=== PATIENT | female | born 1960 | race Caucasian/White ===

== ENCOUNTER → 2018-08-08 | Day surgery (SDC) | payer BC ==
--- OUTSIDE RECORDS SUMMARY | 2018-08-08 08:26 | XMS REPORT | Continuity of Care Document ---
:1960 Author Organization Interface Problems Problem Status Onset Classification Date Comments Source Date Reported RUPTURED Active [facility] Anxiety Resolved Problem 01/07/2016 [facility] BP (<span Resolved Problem 01/07/2016 [facility] ID="[id number] Medical 111">[facility] d</span>) Lipidemia Resolved Problem 01/07/2016 [facility] Medications Medication Details Route Status Patient Ordering Order Source Instructions Provider Date Loperamide 2 mg, 1 cap, Inactive [facility] Route: PO, Drug 2015 Medical form: CAP, Q4H, Center Dosing Weight 113.636, kg, PRN as needed for loose stool, Start date: 01/04/16 10:00:00 CDT, Duration: 30 day, Stop date: 02/03/16 9:59:00 CDTNotes: (Same as: Imodium) MAX adult dose is 8 caps/day Flagyl 500 mg, 1 tab, Inactive 01/03[facility] Route: PO, Drug 2015 Medical form: TAB, Center Q12H, Dosing Weight 113.636, kg, Start date: 01/04/16 9:00:00 CDT, Duration: 30 day, Stop date: 02/02/16 21:00:00 CDTNotes: (Same as: Flagyl) Take with food/ avoid alcohol Sulfamethoxazole 1 tab, PO, Active 01/03[facility] [place] 800 MG / [id number], X 10 2015 Medical Trimethoprim 160 day, # 20 tab, Center MG Oral Tablet 0 Refill(s) [Bactrim] Metronidazole 500 500 mg=1 tab, Active 01/03[facility] [place] MG Oral Tablet PO, Q12H, X 10 2015 Medical day, # 20 tab, Center 0 Refill(s) Sulfamethoxazole 1 tab, Route: Inactive 01/03[facility] [place] 800 MG / PO, Drug Form: 2015 Medical Trimethoprim 160 TAB, Dosing Center MG Oral Tablet Weight 113.636, [Bactrim] kg, [id number], Start date: 01/04/16 6:00:00 CDT, Duration: 10 day, Stop date: 01/13/16 18:00:00 CDTNotes: One DS tablet=trimetho prim 160mg + sulfamethoxazol e 800 mg Dose based on trimethoprim component On empty stomach with a glass of water. 1 hr before meals (Same As: Bactrim DS, Septra DS) Simvastatin 10 mg, 1 tab, No Longer [place] Route: PO, Drug Active 2015 Medical form: TAB, Center Bedtime, Dosing Weight 100, kg, Start date: 01/03/16 21:00:00 CDT, Duration: 30 day, Stop date: 02/01/16 21:00:00 CDTNotes: (Same as: Zocor) Flagyl 500 mg, 100 mL, No Longer [place] Route: IVPB, Active 2015 Medical Drug form: INJ, Center [id number], Dosing Weight 100, kg, Start date: 01/03/16 14:00:00 CDT, Duration: 30 day, Stop date: 02/02/16 6:00:00 CDTNotes: (Same as: Flagyl) Avoid alcohol. Ceftriaxone 1 gm, Route: No Longer [place] IVPB, Drug Active 2015 Medical form: PDR/INJ, Center [id number], Dosing Weight 100, kg, Start date: 01/03/16 14:00:00 CDT, Duration: 30 day, Stop date: 02/01/16 14:00:00 CDTNotes: (Same As: Rocephin). Use with 100 mL NS and infuse over 30 min MEDICATION WASTE Product Size: 1000 mg Product Wasted: ___ mg D5W 1/2NS + KCL 1,000 mL, Rate: No Longer [place] 20mEq/L 1000ml 125 ml/hr, Active 2015 Medical (Premix) 1,000 mL Infuse over: 8 Center hr, Route: IV, Dosing Weight 100 kg, Total Volume: 1,000, Start date: 01/03/16 13:57:00 CDT, Duration: 30 day, Stop date: 02/02/16 13:56:00 CDT Tylenol 1,000 mg, 2 No Longer [place] tab, Route: PO, Active 2015 Medical Drug form: TAB, Center Q6H, Dosing Weight 100, kg, Start date: 01/03/16 12:00:00 CDT, Duration: 30 day, Stop date: 02/02/16 6:00:00 CDTNotes: Max acetaminophen 4000 mg/day (4 gm/day). (Same as: Tylenol Extra Strength) Famotidine 20 MG 20 mg=1 tab, Active [facility] Oral Tablet PO, PRN, 0 2015 Medical [Pepcid] Refill(s) Center Escitalopram 20 MG 20 mg=1 tab, Active [facility] Oral Tablet PO, Daily, 0 2015 Medical [Lexapro] Refill(s) Center amLODIPine 5 mg 5 mg=1 tab, PO, Active [facility] oral tablet Daily, 0 2015 Medical Refill(s) Center simvastatin 20 mg 20 mg=1 tab, Active [facility] oral tablet PO, Bedtime 2015 Medical Center Lexapro 10 mg, 1 tab, No Longer [facility] Route: PO, Drug Active 2015 Medical form: TAB, Center Daily, Dosing Weight 100, kg, Start date: 01/03/16 9:00:00 CDT, Duration: 30 day, Stop date: 02/01/16 9:00:00 CDTNotes: (Same as: Lexapro) Amlodipine 5 mg, 1 tab, No Longer [facility] Route: PO, Drug Active 2015 Medical form: TAB, Center Daily, Dosing Weight 100, kg, Start date: 01/03/16 9:00:00 CDT, Duration: 30 day, Stop date: 02/01/16 9:00:00 CDTNotes: (Same as: Norvasc) Famotidine 20 MG 20 mg, 1 tab, No Longer [facility] Oral Tablet Route: PO, Drug Active 2015 Medical [Pepcid] form: TAB, BID, Center Dosing Weight 100, kg, Start date: 01/03/16 9:00:00 CDT, Duration: 30 day, Stop date: 02/01/16 17:00:00 CDTNotes: (Same as: Pepcid) Zofran 4 mg, 2 mL, No Longer [place] Route: IV, Drug Active 2015 Medical form: INJ, Q8H, Center Dosing Weight 100, kg, PRN as needed for nausea/vomiting , Start date: 01/03/16 6:30:00 CDT, Duration: 30 day, Stop date: 02/02/16 6:29:00 CDTNotes: (Same as: Zoan) MEDICATION WASTE Product Size: 4 mg Product Wasted: ___ mg Ibuprofen 400 mg, 1 tab, No Longer [place] Route: PO, Drug Active 2015 Medical form: TAB, Q8H, Center Dosing Weight 100, kg, PRN Pain Score 1-5, Start date: 01/03/16 6:30:00 CDT, Duration: 30 day, Stop date: 02/02/16 6:29:00 CDTNotes: (Same as: Motrin) "Do Not Crush" Give with food. Isolyte S (PH 7.4) 1,000 mL, Rate: Inactive [place] 1000 mL 1,000 mL 140 ml/hr, 2015 Medical Infuse over: Center 7.1 hr, Route: IV, Dosing Weight 100 kg, Total Volume: 1,000, Start date: 01/03/16 6:25:00 CDT, Duration: 30 day, Stop date: 02/02/16 6:24:00 CDTNotes: (Same as: Isolyte S PH 7.4) Lovenox 30 mg, 0.3 mL, No Longer [facility] Route: SUB-Q, Active 2015 Medical Drug form: INJ, Center Q12H, Dosing Weight 100, kg, Priority: STAT, Start date: 01/03/16 6:12:00 CDT, Duration: 30 day, Stop date: 02/01/16 21:00:00 CDTNotes: (Same as: Lovenox) Pepcid 40 mg, Route: Inactive [place] IV, ONCE, 2015 Medical Dosing Weight Center 100, kg, Start date: 01/03/16 4:08:00 CDT, Stop date: 01/03/16 4:08:00 CDT Flagyl 500 mg, 100 mL, Inactive [facility] Route: IVPB, 2015 Medical Drug form: INJ, Center ONCE, Dosing Weight 100, kg, Priority: STAT, Start date: 01/03/16 2:50:00 CDT, Stop date: 01/03/16 2:50:00 CDTNotes: (Same as: yl) Avoid alcohol. Allergies, Adverse Reactions, Alerts Substance Category Reaction Severity Reaction Status Date Comments Source type Reported Augmentin Assertion Drug Active [facility] codeine Assertion Augmentin Drug Active [facility] Immunizations Immunization Date Given Site Status Last Updated Comments Source Results Order Name Results Value Reference Date Interpretation Comments Source Range ENDOCRINOLO LH 0.88 01/02 [facility] GY mIU/mL [facility] ENDOCRINOLO FSH 3.3 mIU/mL 01/02 [facility] GY [facility] HEMATOLOGY Segs 59.1 % 45.0 - 01/02 [facility] 75.0 [facility] HEMATOLOGY Basophils 0.6 % 0.0 - 1.0 01/[address] HEMATOLOGY Monocytes 7.9 % 2.0 - 12.0 01/[address] HEMATOLOGY Lymphocytes 30.4 % 20.0 - 01/02 [facility] 40.0 [facility] HEMATOLOGY Basophils # 0.1 K/CMM 0.0 - 0.2 01/[address] HEMATOLOGY Eosinophils # 0.2 K/CMM 0.0 - 0.5 01/[address] HEMATOLOGY Monocytes # 0.9 K/CMM 0.0 - 0.8 01/[address] HEMATOLOGY Eosinophils 2.0 % 0.0 - 4.0 01/[address] HEMATOLOGY Segs-Bands # 6.9 K/CMM 1.5 - 8.1 01/[address] HEMATOLOGY Lymphocytes # 3.6 K/CMM 1.0 - 5.5 01/[address] HEMATOLOGY MCV 98.6 fL 80.0 - 01/02 [facility] 98.0 [facility] HEMATOLOGY MPV 8.9 fL 7.4 - 10.4 01/[address] HEMATOLOGY Platelet 128 K/CMM 133 - 450 01/[address] HEMATOLOGY MCH 32.9 pg 27.0 - 01/02 [facility] 31.0 [facility] HEMATOLOGY RDW 12.9 % 11.5 - 01/02 [facility] 14.5 /2015 [facility] HEMATOLOGY MCHC 33.4 g/dL 32.0 - 01/02 [facility] 36.0 /2016 [facility] HEMATOLOGY RBC 3.52 M/CMM 4.20 - 01/02 [facility] 5.40 /2015 [facility] HEMATOLOGY WBC 11.7 K/CMM 3.7 - 10.4 01/02 /2015 [facility] HEMATOLOGY Hgb 11.6 g/dL 12.0 - 01/02 [facility] 16.0 /2016 [facility] HEMATOLOGY Hct 34.7 % 36.0 - 01/02 [facility] 48.0 /2016 [facility] MOLECULAR Source APTIMA Endocervix 01/02 [facility] DIAGNOSTIC /2015 Medical *NA* Center (01/03/16 10:56 AM) MOLECULAR N gonorrhea Negative Negative 01/02 [facility] DIAGNOSTIC by Amp Det [facility] (APTIMA) *NA* [place] (01/03/16 10:56 AM) MOLECULAR C trachomatis Negative Negative 01/02 [facility] DIAGNOSTIC by Amp Det [facility] (APTIMA) *NA* Center (01/03/16 10:56 AM) URINE AND UA RBC 0-2 /HPF 0 - 2 01/02 [facility] STOOL /2015 [facility] URINE AND UA Bacteria Few /HPF None Seen 01/02 [facility] STOOL /HPF /2015 [facility] URINE AND UA Sq Epi Moderate Few /LPF 01/02 [facility] STOOL /LPF /2015 [facility] URINE AND UA WBC 3-5 /HPF None Seen 01/02 [facility] STOOL /HPF /2015 [facility] URINE AND Micro? Performed 01/02 [facility] STOOL [facility] (01/03/16 6:09 AM) [place] URINE AND UA Ketones 40 mg/dL Negative 01/02 [facility] STOOL mg/dL /2015 [facility] URINE AND UA Protein Negative Negative 01/02 [facility] STOOL [facility] (01/03/16 6:09 AM) [place] URINE AND UA Glucose Negative Negative 01/02 [facility] (01/03/16 6:09 AM) [place] URINE AND UA Bili Moderate Negative 01/02 [facility] *ABN* Center (01/03/16 6:09 AM) URINE AND UA Blood Small Negative 01/02 [facility] *ABN* Center (01/03/16 6:09 AM) URINE AND UA Nitrite Negative Negative 01/02 [facility] STOOL /2015 [facility] (01/03/16 6:09 AM) [place] URINE AND UA Leuk Est Negative Negative 01/02 [facility] /2015 [facility] (01/03/16 6:09 AM) [place] URINE AND UA 2.0 EU/dL 0.1 - 1.0 01/02 [facility] Urobilinogen /2015 [facility] URINE AND UA Color Yellow Yellow 01/02 [facility] /2015 [facility] *NA* [place] (01/03/16 6:09 AM) URINE AND UA Turbidity Slight Cloudy Clear 01/02 [facility] STOOL /2015 [facility] (01/03/16 6:09 AM) [place] URINE AND UA Spec Grav 1.025 <=1.030 01/02 [facility] /2015 [facility] URINE AND UA pH 6.5 5.0 - 8.0 01/02 [facility] /2015 [facility] BLOOD BANK Antibody Scrn Negative 01/02 [facility] RESULTS [facility] (01/03/16 2:47 AM) [place] BLOOD BANK ABO/Rh O POS 01/02 [facility] /2015 [facility] CHEM PANEL Lactic Acid 1.1 mmol/L 0.5 - 2.2 01/02 [facility] WB /2015 [facility] CHEM PANEL Lipase Lvl 75 unit/L 73 - 393 01/[address] ELECTROLYTE Chloride Lvl 101 meq/L 95 - 109 01/02 [facility] S /2015 [facility] ELECTROLYTE CO2 26 meq/L 24 - 32 01/[address] ELECTROLYTE Sodium Lvl 136 meq/L 135 - 145 01/[address] ELECTROLYTE Potassium Lvl 3.5 meq/L 3.5 - 5.1 01/02 [facility] S 2016 [facility] ELECTROLYTE Calcium Lvl 8.2 mg/dL 8.5 - 10.5 01/02 [facility] S /2016 [facility] ELECTROLYTE BUN 10 mg/dL 7 - 22 01/02 [facility]2016 [facility] ELECTROLYTE Glucose Lvl 92 mg/dL 70 - 99 01/02 [facility]2015 [facility] ELECTROLYTE Creatinine 0.63 mg/dL 0.50 - 01/02 [facility] Lvl 1.40 /2015 [facility] ELECTROLYTE eGFR 101 01/02 Result Comment: The eGFR is calculated using the CKD-EPI formula. In most young, healthy individuals the eGFR will be > 90 mL/min/1.73m2. The eGFR declines with age. An eGFR of 60-89 may be normal in [facility] mL/min/1.7 /2015 some populations, particularly the elderly, for whom the CKD-EPI formula has not been extensively validated. Use of the eGFR is not recommended in the following populations: [address] Individuals with unstable creatinine concentrations, including patients and those with serious co-morbid conditions. Patients with extremes in muscle mass or diet. The data above are obtained from the National Kidney Disease Education Program (NKDEP) which additionally recommends that when the eGFR is used in patients with extremes of body mass index for purposes of drug dosing, the eGFR should be multiplied by the estimated BMI. ELECTROLYTE Alk Phos 87 unit/L 39 - 136 01/[address] ELECTROLYTE AST 27 unit/L 0 - 37 01/[address] ELECTROLYTE Bili Total 0.8 mg/dL 0.2 - 1.3 01/[address] ELECTROLYTE ALT 36 unit/L 0 - 65 01/[address] ELECTROLYTE Total Protein 7.4 g/dL 6.4 - 8.4 01/[address] ELECTROLYTE Albumin Lvl 3.2 g/dL 3.5 - 5.0 01/[address] ELECTROLYTE AGAP 12.5 meq/L 10.0 - 01/02 [facility] 20.0 [facility] ELECTROLYTE B/C Ratio 16 6 - 25 01/[address] ELECTROLYTE A/G Ratio 0.8 0.7 - 1.6 01/[address] ELECTROLYTE Globulin 4.2 g/dL 2.0 - 4.0 01/[address] HEMATOLOGY Segs 60.8 % 45.0 - 01/02 [facility] 75.0 2015 [facility] HEMATOLOGY Eosinophils # 0.2 K/CMM 0.0 - 0.5 01/[address] HEMATOLOGY Monocytes # 1.1 K/CMM 0.0 - 0.8 01/[address] HEMATOLOGY Lymphocytes # 4.0 K/CMM 1.0 - 5.5 01/[address] HEMATOLOGY Segs-Bands # 8.2 K/CMM 1.5 - 8.1 01/02 [place] [address] [facility] HEMATOLOGY Basophils 0.4 % 0.0 - 1.0 01/02 [facility] HEMATOLOGY Eosinophils 1.5 % 0.0 - 4.0 01/02 [facility] HEMATOLOGY Monocytes 7.8 % 2.0 - 12.0 01/02 [facility] HEMATOLOGY Lymphocytes 29.5 % 20.0 - 01/02 [place] 40.0 /2015 [facility] HEMATOLOGY INR 1.10 0.85 - 01/02 [place] 1.17 /2015 [facility] HEMATOLOGY PTT 33.3 s 22.9 - 01/02 [place] 35.8 /2015 [facility] HEMATOLOGY PT 14.5 s 12.0 - 01/02 14.7 /2015 [facility] HEMATOLOGY MPV 9.5 fL 7.4 - 10.4 01/02 [facility] HEMATOLOGY MCV 98.3 fL 80.0 - 01/02 [facility] 98.0 /2015 [facility] HEMATOLOGY Hct 39.8 % 36.0 - 01/02 48.0 [facility] HEMATOLOGY Hgb 13.2 g/dL 12.0 - 01/02 16.0 [facility] HEMATOLOGY RBC 4.05 M/CMM 4.20 - 01/02 [place] 5.40 /2015 [facility] HEMATOLOGY WBC 13.5 K/CMM 3.7 - 10.4 01/02 [facility] HEMATOLOGY MCH 32.6 pg 27.0 - 01/02 31.0 /2016 [facility] HEMATOLOGY Platelet 145 K/CMM 133 - 450 01/02 [facility] HEMATOLOGY RDW 13.4 % 11.5 - 01/02 14.5 [facility] HEMATOLOGY MCHC 33.2 g/dL 32.0 - 01/02 [place] 36.0 2016 [facility] Torso-Outsi Torso-Outside EXAM: CT ABDOMEN AND PELVIS WITHOUT AND WITH CONTRAST 01/02 - [facility] de Consult Consult CT /2015 - Medical CT This report was dictated by a Paint Technician/Fellow. I have personally reviewed the images as Center well as the Resident's interpretation and agree with the findings. DATE: 01/03/2016 2:45 AM CDT Read by: Lizzette Anthony MD Resident: Lizzette Anthony MD Dictated Date/time: 01/03/16 08:53 Electronically Signed by: Madan Strauss MD 01/03/16 10:24 FINAL REPORT INDICATION: Abdominal pain and cramping for one week ADDITIONAL INFORMATION: None. COMPARISON: Pelvic ultrasound from same day from outside hospital. TECHNIQUE: Volumetric CT acquisition of the abdomen and pelvis before and after the intravenous administration of contrast. Axial, coronal and sagittal reconstructions. Postcontrast phases: Portal venous IV contrast: Present Oral contrast: None. DLP: 1180 mGy-cm FINDINGS: Lines and tubes: None. Lower thorax: Clear. Liver: Diffuse low-attenuation. Biliary tree: No intra- or extrahepatic biliary ductal dilation. Gallbladder: Normal. No CT evidence of gallstones. Pancreas: Normal. Spleen: Normal. Adrenals: Normal. Kidneys and ureters: Normal. Bladder: Normal. Reproductive organs: Heterogeneity and thickening of the endometrium, better appreciated on the ultrasound. Gastrointestinal tract: Normal caliber. Appendix: Not reliably identified. Peritoneum and retroperitoneum: There is stranding and inflammatory changes in the right lower quadrant and pelvis. No lymphadenopathy, ascites or free air. Lymph nodes: Normal. Vasculature: Normal. Ovarian vein is patent. Bones: Degenerative changes of the lower lumbar spine. Soft tissues: Normal. IMPRESSION: 1. Endometrial distention and heterogeneity, with stranding and inflammatory changes in the pelvis and right lower quadrant. Findings are most concerning for pelvic inflammatory disease. Recommend foll ow-up with ultrasound after treatment is completed to ensure resolution of the endometrial abnormality. 2. No ovarian vein thrombosis or abscess formation. 3. Appendix is not reliably identified. Torso-Outsi Torso-Outside EXAM: CT ABDOMEN AND PELVIS WITHOUT AND WITH CONTRAST 01/02 - [place] [facility] Consult Consult CT /2015 - Medical CT This report was dictated by a Paint Technician/Fellow. I have personally reviewed the images as Center well as the Resident's interpretation and agree with the findings. DATE: 01/03/2016 2:45 AM CDT Read by: Lizzette Anthony MD Resident: Lizzette Anthony MD Dictated Date/time: 01/03/16 08:53 Electronically Signed by: Madan Strauss MD 01/03/16 10:24 FINAL REPORT INDICATION: Abdominal pain and cramping for one week ADDITIONAL INFORMATION: None. COMPARISON: Pelvic ultrasound from same day from outside hospital. TECHNIQUE: Volumetric CT acquisition of the abdomen and pelvis before and after the intravenous administration of contrast. Axial, coronal and sagittal reconstructions. Postcontrast phases: Portal venous IV contrast: Present Oral contrast: None. DLP: 1180 mGy-cm FINDINGS: Lines and tubes: None. Lower thorax: Clear. Liver: Diffuse low-attenuation. Biliary tree: No intra- or extrahepatic biliary ductal dilation. Gallbladder: Normal. No CT evidence of gallstones. Pancreas: Normal. Spleen: Normal. Adrenals: Normal. Kidneys and ureters: Normal. Bladder: Normal. Reproductive organs: Heterogeneity and thickening of the endometrium, better appreciated on the ultrasound. Gastrointestinal tract: Normal caliber. Appendix: Not reliably identified. Peritoneum and retroperitoneum: There is stranding and inflammatory changes in the right lower quadrant and pelvis. No lymphadenopathy, ascites or free air. Lymph nodes: Normal. Vasculature: Normal. Ovarian vein is patent. Bones: Degenerative changes of the lower lumbar spine. Soft tissues: Normal. IMPRESSION: 1. Endometrial distention and heterogeneity, with stranding and inflammatory changes in the pelvis and right lower quadrant. Findings are most concerning for pelvic inflammatory disease. Recommend foll ow-up with ultrasound after treatment is completed to ensure resolution of the endometrial abnormality. 2. No ovarian vein thrombosis or abscess formation. 3. Appendix is not reliably identified. Vital Signs Vital Sign Value Date Comments Source Heart Rate 71 01/04/2016 [facility] Temperature Oral (F) 97.3 F 01/04/2016 [facility] Systolic (mm Hg) 107 01/04/2016 [facility] Diastolic (mm Hg) 66 01/04/2016 [facility] Respitory Rate 18 01/04/2016 [facility] Temperature Oral (F) 98.1 F 01/04/2016 [facility] Systolic (mm Hg) 115 01/04/2016 [facility] Diastolic (mm Hg) 71 01/04/2016 [facility] Respitory Rate 16 01/04/2016 [facility] Heart Rate 69 01/04/2016 [facility] Heart Rate 70 01/04/2016 [facility] Temperature Oral (F) 97.0 F 01/04/2016 [facility] Respitory Rate 17 01/04/2016 [facility] Systolic (mm Hg) 112 01/04/2016 [facility] Diastolic (mm Hg) 63 01/04/2016 [facility] BMI Calculated 43 01/03/2016 [facility] Weight 113.636 01/03/2016 [facility] Height 162.56 cm 01/03/2016 [facility] Weight 100 01/03/2016 [facility] BMI Calculated 34.53 01/03/2016 [facility] Height 170.18 cm 01/03/2016 [facility] Encounters Location Location Encounter Encounter Reason Attending ADM DC Status Source Details Type Number For Provider Date Date Visit [facility] [id number] [facility] 01/02 01/03 [facility] [place] /2015 [facility] Procedures Procedure Code Date Perfomer Comments Source Ablation<sup>1</ [id number] UTERUS ABLATION [facility] sup> TO CONTROL Medical BLEEDING 3 Center YEARS AGE IN [place]
--- NOTE | 2018-08-08 10:50 | RAD REPORT ---
EXAM DESCRIPTION: Ultrasound-guided vacuum assisted right breast core biopsy CLINICAL HISTORY: Breast mass R92.8,N64.52 COMPARISON: No comparisons FINDINGS: Informed consent was obtained and time-out was performed. The patient's right breast was prepped and draped in the usual sterile fashion. 1% lidocaine was used for local anesthetic purposes. Utilizing aseptic technique and ultrasound guidance, vacuum assisted core biopsy device was used to o btain 2 core specimens through the mass of interest approximate 6 o'clock position right breast. A po st biopsy clip was then placed. All collected material was sent for cytology. Patient tolerated procedure well. IMPRESSION: Successful ultrasound guided vacuum assisted right breast mass biopsy.
== END ==
LOC: DS 08:23
PROVIDERS: ATTEND Obstetrics & Gynecology
PROC: 0HBT3ZX Excision of Right Breast, Percutaneous Approach, Diagnostic (ICD-10-PCS; principal; 2018-08-08)
DX: D05.11 Intraductal carcinoma in situ of right breast (principal)
CPT/HCPCS: 19083; 88305

== ENCOUNTER 2018-10-06 07:10 | Day surgery (SDC) | payer BC ==
[2018-10-03 09:35] LABS: Absolute Lymphocytes (CBC) 3.8 K/uL (0.7-4.9); Absolute Monocytes 0.6 K/uL (0.1-1.3); Absolute Neutrophil 5.6 K/uL (1.8-8.0); Basophils % 0.7 % (0-1.3); Eosinophils % 1.9 % (0-4.4); Hematocrit 45.1 % (36.0-45.0); Lymphocytes % 36.7 % (15.3-44.8); MPV 9.9 fL (7.6-11.3); Monocytes % 6.3 % (3.3-12.3); RBC Red Blood Cell Count 4.45 M/uL (3.86-4.86)
[2018-10-03 09:52] LABS: BUN Blood Urea Nitrogen 10 mg/dL (7-18); Bicarbonate 28 mmol/L (21-32); Glucose Level 105 mg/dL (74-106); Potassium 3.6 mmol/L (3.5-5.1); Sodium Level 141 mmol/L (136-145)
--- NOTE | 2018-10-03 10:09 | RAD REPORT ---
EXAM DESCRIPTION: Isidro Louie (2 Views)10/03/2018 9:26 am CLINICAL HISTORY: Breast cancer/preop COMPARISON: None FINDINGS: The lungs appear clear of acute infiltrate. The heart is borderline enlarged IMPRESSION: No acute abnormalities displayed
--- NOTE | 2018-10-04 09:26 | EKG ---
Test Date: 2018-10-03 Test Time: 08:16:59 Community Chest Officer: VINNY MEASUREMENT RESULTS: Intervals: Rate: 85 VT: 178 QRSD: 92 QT: 408 QTc: 485 [place]: P: 67 VT: 178 QRS: 25 T: 61 INTERPRETIVE STATEMENTS: Normal sinus rhythm Prolonged QT Abnormal ECG No previous ECG available for comparison Electronically Signed On 10-04-18 09:22:14 CDT by Ihsan Del Angel
--- OUTSIDE RECORDS SUMMARY | 2018-10-06 07:13 | XMS REPORT | Continuity of Care Document ---
:1960 Author Organization Interface Problems Problem Status Onset Classification Date Comments Source Date Reported RUPTURED Active [facility] APPENDIX 6 Medical Center Anxiety Resolved Problem 01/07/2016 [facility] BP (<span Resolved Problem 01/07/2016 [facility] ID="[id number] Medical 111">[facility] d</span>) Lipidemia Resolved Problem 01/07/2016 [facility] Medications Medication Details Route Status Patient Ordering Order Source Instructions Provider Date Loperamide 2 mg, 1 cap, Inactive [facility] Route: PO, Drug 2015 Medical form: CAP, Q4H, Center Dosing Weight 113.636, kg, PRN as needed for loose stool, Start date: 01/04/16 10:00:00 CDT, Duration: 30 day, Stop date: 02/03/16 9:59:00 CDTNotes: (Same as: Imodium) MAX adult dose is 8 caps/day Flagyl 500 mg, 1 tab, Inactive 01/03[facility] Route: PO, Drug 2015 Medical form: TAB, Center Q12H, Dosing Weight 113.636, kg, Start date: 01/04/16 9:00:00 CDT, Duration: 30 day, Stop date: 02/02/16 21:00:00 CDTNotes: (Same as: Flagyl) Take with food/ avoid alcohol Sulfamethoxazole 1 tab, PO, Active 01/03[facility] [place] 800 MG / [id number], X 10 2015 Medical Trimethoprim 160 day, # 20 tab, Center MG Oral Tablet 0 Refill(s) [Bactrim] Metronidazole 500 500 mg=1 tab, Active 01/03[facility] [place] MG Oral Tablet PO, Q12H, X 10 2015 Medical day, # 20 tab, Center 0 Refill(s) Sulfamethoxazole 1 tab, Route: Inactive 01/03[facility] [place] 800 MG / PO, Drug Form: 2015 Medical Trimethoprim 160 TAB, Dosing Center MG Oral Tablet Weight 113.636, [Bactrim] kg, [id number], Start date: 01/04/16 6:00:00 CDT, Duration: 10 day, Stop date: 01/13/16 18:00:00 CDTNotes: One DS tablet=trimetho prim 160mg + sulfamethoxazol e 800 mg Dose based on trimethoprim component On empty stomach with a glass of water. 1 hr before meals (Same As: Bactrim DS, Septra DS) Simvastatin 10 mg, 1 tab, No Longer [place] Route: PO, Drug Active 2015 Medical form: TAB, Center Bedtime, Dosing Weight 100, kg, Start date: 01/03/16 21:00:00 CDT, Duration: 30 day, Stop date: 02/01/16 21:00:00 CDTNotes: (Same as: Zocor) Flagyl 500 mg, 100 mL, No Longer [place] Route: IVPB, Active 2015 Medical Drug form: INJ, Center [id number], Dosing Weight 100, kg, Start date: 01/03/16 14:00:00 CDT, Duration: 30 day, Stop date: 02/02/16 6:00:00 CDTNotes: (Same as: Flagyl) Avoid alcohol. Ceftriaxone 1 gm, Route: No Longer [place] IVPB, Drug Active 2015 Medical form: PDR/INJ, Center [id number], Dosing Weight 100, kg, Start date: 01/03/16 14:00:00 CDT, Duration: 30 day, Stop date: 02/01/16 14:00:00 CDTNotes: (Same As: Rocephin). Use with 100 mL NS and infuse over 30 min MEDICATION WASTE Product Size: 1000 mg Product Wasted: ___ mg D5W 1/2NS + KCL 1,000 mL, Rate: No Longer [place] 20mEq/L 1000ml 125 ml/hr, Active 2015 Medical (Premix) 1,000 mL Infuse over: 8 Center hr, Route: IV, Dosing Weight 100 kg, Total Volume: 1,000, Start date: 01/03/16 13:57:00 CDT, Duration: 30 day, Stop date: 02/02/16 13:56:00 CDT Tylenol 1,000 mg, 2 No Longer [place] tab, Route: PO, Active 2015 Medical Drug form: TAB, Center Q6H, Dosing Weight 100, kg, Start date: 01/03/16 12:00:00 CDT, Duration: 30 day, Stop date: 02/02/16 6:00:00 CDTNotes: Max acetaminophen 4000 mg/day (4 gm/day). (Same as: Tylenol Extra Strength) Famotidine 20 MG 20 mg=1 tab, Active [facility] Oral Tablet PO, PRN, 0 2015 Medical [Pepcid] Refill(s) Center Escitalopram 20 MG 20 mg=1 tab, Active [facility] Oral Tablet PO, Daily, 0 2015 Medical [Lexapro] Refill(s) Center amLODIPine 5 mg 5 mg=1 tab, PO, Active [facility] oral tablet Daily, 0 2015 Medical Refill(s) Center simvastatin 20 mg 20 mg=1 tab, Active [facility] oral tablet PO, Bedtime 2015 Medical Center Lexapro 10 mg, 1 tab, No Longer [facility] Route: PO, Drug Active 2015 Medical form: TAB, Center Daily, Dosing Weight 100, kg, Start date: 01/03/16 9:00:00 CDT, Duration: 30 day, Stop date: 02/01/16 9:00:00 CDTNotes: (Same as: Lexapro) Amlodipine 5 mg, 1 tab, No Longer [facility] Route: PO, Drug Active 2015 Medical form: TAB, Center Daily, Dosing Weight 100, kg, Start date: 01/03/16 9:00:00 CDT, Duration: 30 day, Stop date: 02/01/16 9:00:00 CDTNotes: (Same as: Norvasc) Famotidine 20 MG 20 mg, 1 tab, No Longer [facility] Oral Tablet Route: PO, Drug Active 2015 Medical [Pepcid] form: TAB, BID, Center Dosing Weight 100, kg, Start date: 01/03/16 9:00:00 CDT, Duration: 30 day, Stop date: 02/01/16 17:00:00 CDTNotes: (Same as: Pepcid) Zofran 4 mg, 2 mL, No Longer [place] Route: IV, Drug Active 2015 Medical form: INJ, Q8H, Center Dosing Weight 100, kg, PRN as needed for nausea/vomiting , Start date: 01/03/16 6:30:00 CDT, Duration: 30 day, Stop date: 02/02/16 6:29:00 CDTNotes: (Same as: Zoan) MEDICATION WASTE Product Size: 4 mg Product Wasted: ___ mg Ibuprofen 400 mg, 1 tab, No Longer [place] Route: PO, Drug Active 2015 Medical form: TAB, Q8H, Center Dosing Weight 100, kg, PRN Pain Score 1-5, Start date: 01/03/16 6:30:00 CDT, Duration: 30 day, Stop date: 02/02/16 6:29:00 CDTNotes: (Same as: Motrin) "Do Not Crush" Give with food. Isolyte S (PH 7.4) 1,000 mL, Rate: Inactive [place] 1000 mL 1,000 mL 140 ml/hr, 2015 Medical Infuse over: Center 7.1 hr, Route: IV, Dosing Weight 100 kg, Total Volume: 1,000, Start date: 01/03/16 6:25:00 CDT, Duration: 30 day, Stop date: 02/02/16 6:24:00 CDTNotes: (Same as: Isolyte S PH 7.4) Lovenox 30 mg, 0.3 mL, No Longer [facility] Route: SUB-Q, Active 2015 Medical Drug form: INJ, Center Q12H, Dosing Weight 100, kg, Priority: STAT, Start date: 01/03/16 6:12:00 CDT, Duration: 30 day, Stop date: 02/01/16 21:00:00 CDTNotes: (Same as: Lovenox) Pepcid 40 mg, Route: Inactive [place] IV, ONCE, 2015 Medical Dosing Weight Center 100, kg, Start date: 01/03/16 4:08:00 CDT, Stop date: 01/03/16 4:08:00 CDT Flagyl 500 mg, 100 mL, Inactive [facility] Route: IVPB, 2015 Medical Drug form: INJ, Center ONCE, Dosing Weight 100, kg, Priority: STAT, Start date: 01/03/16 2:50:00 CDT, Stop date: 01/03/16 2:50:00 CDTNotes: (Same as: yl) Avoid alcohol. Allergies, Adverse Reactions, Alerts Substance Category Reaction Severity Reaction Status Date Comments Source type Reported [place] Assertion [place] [facility] [place] Assertion [place] Drug [place] [facility] [place] Immunizations Immunization Date Given Site Status Last Updated Comments Source Results Order Name Results Value Reference Date Interpretation Comments Source Range ENDOCRINOLO LH 0.88 01/02 [facility] GY mIU/mL [facility] ENDOCRINOLO FSH 3.3 mIU/mL 01/02 [facility] GY [facility] HEMATOLOGY Segs 59.1 % 45.0 - 01/02 [facility] 75.0 [facility] HEMATOLOGY Basophils 0.6 % 0.0 - 1.0 01/[address] HEMATOLOGY Monocytes 7.9 % 2.0 - 12.0 01/[address] HEMATOLOGY Lymphocytes 30.4 % 20.0 - 01/02 [facility] 40.0 [facility] HEMATOLOGY Basophils # 0.1 K/CMM 0.0 - 0.2 01/[address] HEMATOLOGY Eosinophils # 0.2 K/CMM 0.0 - 0.5 01/[address] HEMATOLOGY Monocytes # 0.9 K/CMM 0.0 - 0.8 01/[address] HEMATOLOGY Eosinophils 2.0 % 0.0 - 4.0 01/[address] HEMATOLOGY Segs-Bands # 6.9 K/CMM 1.5 - 8.1 01/[address] HEMATOLOGY Lymphocytes # 3.6 K/CMM 1.0 - 5.5 01/[address] HEMATOLOGY MCV 98.6 fL 80.0 - 01/02 [facility] 98.0 [facility] HEMATOLOGY MPV 8.9 fL 7.4 - 10.4 01/[address] HEMATOLOGY Platelet 128 K/CMM 133 - 450 01/[address] HEMATOLOGY MCH 32.9 pg 27.0 - 01/02 [facility] 31.0 [facility] HEMATOLOGY RDW 12.9 % 11.5 - 01/02 [facility] 14.5 /2015 [facility] HEMATOLOGY MCHC 33.4 g/dL 32.0 - 01/02 [facility] 36.0 /2016 [facility] HEMATOLOGY RBC 3.52 M/CMM 4.20 - 01/02 [facility] 5.40 /2015 [facility] HEMATOLOGY WBC 11.7 K/CMM 3.7 - 10.4 01/02 /2015 [facility] HEMATOLOGY Hgb 11.6 g/dL 12.0 - 01/02 [facility] 16.0 /2016 [facility] HEMATOLOGY Hct 34.7 % 36.0 - 01/02 [facility] 48.0 /2016 [facility] MOLECULAR Source APTIMA Endocervix 01/02 [facility] DIAGNOSTIC /2015 Medical *NA* Center (01/03/16 10:56 AM) MOLECULAR N gonorrhea Negative Negative 01/02 [facility] DIAGNOSTIC by Amp Det [facility] (APTIMA) *NA* [facility] (01/03/16 10:56 AM) MOLECULAR C trachomatis Negative Negative 01/02 [facility] DIAGNOSTIC by Amp Det [facility] (APTIMA) *NA* Center (01/03/16 10:56 AM) URINE AND UA RBC 0-2 /HPF 0 - 2 01/02 [facility] STOOL /2015 [facility] URINE AND UA Bacteria Few /HPF None Seen 01/02 [facility] STOOL /HPF /2015 [facility] URINE AND UA Sq Epi Moderate Few /LPF 01/02 [facility] STOOL /LPF /2015 [facility] URINE AND UA WBC 3-5 /HPF None Seen 01/02 [facility] STOOL /HPF /2015 [facility] URINE AND Micro? Performed 01/02 [facility] STOOL [facility] (01/03/16 6:09 AM) [facility] URINE AND UA Ketones 40 mg/dL Negative 01/02 [facility] STOOL mg/dL /2015 [facility] URINE AND UA Protein Negative Negative 01/02 [facility] STOOL [facility] (01/03/16 6:09 AM) [facility] URINE AND UA Glucose Negative Negative 01/02 [facility] (01/03/16 6:09 AM) [facility] URINE AND UA Bili Moderate Negative 01/02 [facility] *ABN* Center (01/03/16 6:09 AM) URINE AND UA Blood Small Negative 01/02 [facility] *ABN* Center (01/03/16 6:09 AM) URINE AND UA Nitrite Negative Negative 01/02 [facility] STOOL /2015 [facility] (01/03/16 6:09 AM) [facility] URINE AND UA Leuk Est Negative Negative 01/02 [facility] /2015 [facility] (01/03/16 6:09 AM) [facility] URINE AND UA 2.0 EU/dL 0.1 - 1.0 01/02 [facility] Urobilinogen /2015 [facility] URINE AND UA Color Yellow Yellow 01/02 [facility] /2015 [facility] *NA* [facility] (01/03/16 6:09 AM) URINE AND UA Turbidity Slight Cloudy Clear 01/02 [facility] STOOL /2015 [facility] (01/03/16 6:09 AM) [facility] URINE AND UA Spec Grav 1.025 <=1.030 01/02 [facility] /2015 [facility] URINE AND UA pH 6.5 5.0 - 8.0 01/02 [facility] /2015 [facility] BLOOD BANK Antibody Scrn Negative 01/02 [facility] RESULTS [facility] (01/03/16 2:47 AM) [facility] BLOOD BANK ABO/Rh O POS 01/02 [facility] /2015 [facility] CHEM PANEL Lactic Acid 1.1 mmol/L 0.5 - 2.2 01/02 [facility] WB /2015 [facility] CHEM PANEL Lipase Lvl 75 unit/L 73 - 393 01/[address] ELECTROLYTE Chloride Lvl 101 meq/L 95 - 109 01/02 [facility] S /2015 [facility] ELECTROLYTE CO2 26 meq/L 24 - 32 01/[address] ELECTROLYTE Sodium Lvl 136 meq/L 135 - 145 01/[address] ELECTROLYTE Potassium Lvl 3.5 meq/L 3.5 - 5.1 01/02 [facility] S 2016 [facility] ELECTROLYTE Calcium Lvl 8.2 mg/dL 8.5 - 10.5 01/02 [facility] S /2016 [facility] ELECTROLYTE BUN 10 mg/dL 7 - 22 01/02 [facility]2016 [facility] ELECTROLYTE Glucose Lvl 92 mg/dL 70 - 99 01/02 [facility]2015 [facility] ELECTROLYTE Creatinine 0.63 mg/dL 0.50 - 01/02 [facility] Lvl 1.40 /2015 [facility] ELECTROLYTE eGFR 101 01/02 Result Comment: The eGFR is calculated using the CKD-EPI formula. In most young, healthy individuals the eGFR will be > 90 mL/min/1.73m2. The eGFR declines with age. An eGFR of 60-89 may be normal in [facility] mL/min/1.7 /2015 some populations, particularly the elderly, for whom the CKD-EPI formula has not been extensively validated. Use of the eGFR is not recommended in the following populations: [address] Individuals with unstable creatinine concentrations, including [...] Phos 87 unit/L 39 - 136 01/[address] ELECTROLYTE AST 27 unit/L 0 - 37 01/[address] ELECTROLYTE Bili Total 0.8 mg/dL 0.2 - 1.3 01/[address] ELECTROLYTE ALT 36 unit/L 0 - 65 01/[address] ELECTROLYTE Total Protein 7.4 g/dL 6.4 - 8.4 01/[address] ELECTROLYTE Albumin Lvl 3.2 g/dL 3.5 - 5.0 01/[address] ELECTROLYTE AGAP 12.5 meq/L 10.0 - 01/02 [facility] 20.0 [facility] ELECTROLYTE B/C Ratio 16 6 - 25 01/[address] ELECTROLYTE A/G Ratio 0.8 0.7 - 1.6 01/[address] ELECTROLYTE Globulin 4.2 g/dL 2.0 - 4.0 01/[address] HEMATOLOGY Segs 60.8 % 45.0 - 01/02 [facility] 75.0 2015 [facility] HEMATOLOGY Eosinophils # 0.2 K/CMM 0.0 - 0.5 01/[address] HEMATOLOGY Monocytes # 1.1 K/CMM 0.0 - 0.8 01/[address] HEMATOLOGY Lymphocytes # 4.0 K/CMM 1.0 - 5.5 01/[address] HEMATOLOGY Segs-Bands # 8.2 K/CMM 1.5 - 8.1 01/02 [place] [address] [facility] HEMATOLOGY Basophils 0.4 % 0.0 - 1.0 01/02 [facility] HEMATOLOGY Eosinophils 1.5 % 0.0 - 4.0 01/02 [facility] HEMATOLOGY Monocytes 7.8 % 2.0 - 12.0 01/02 [facility] HEMATOLOGY Lymphocytes 29.5 % 20.0 - 01/02 [place] 40.0 /2015 [facility] HEMATOLOGY INR 1.10 0.85 - 01/02 [place] 1.17 /2015 [facility] HEMATOLOGY PTT 33.3 s 22.9 - 01/02 [place] 35.8 /2015 [facility] HEMATOLOGY PT 14.5 s 12.0 - 01/02 14.7 /2015 [facility] HEMATOLOGY MPV 9.5 fL 7.4 - 10.4 01/02 [facility] HEMATOLOGY MCV 98.3 fL 80.0 - 01/02 [facility] 98.0 /2015 [facility] HEMATOLOGY Hct 39.8 % 36.0 - 01/02 48.0 [facility] HEMATOLOGY Hgb 13.2 g/dL 12.0 - 01/02 16.0 [facility] HEMATOLOGY RBC 4.05 M/CMM 4.20 - 01/02 [place] 5.40 /2015 [facility] HEMATOLOGY WBC 13.5 K/CMM 3.7 - 10.4 01/02 [facility] HEMATOLOGY MCH 32.6 pg 27.0 - 01/02 31.0 /2016 [facility] HEMATOLOGY Platelet 145 K/CMM 133 - 450 01/02 [facility] HEMATOLOGY RDW 13.4 % 11.5 - 01/02 14.5 [facility] HEMATOLOGY MCHC 33.2 g/dL 32.0 - 01/02 [place] 36.0 2016 [facility] Torso-Outsi Torso-Outside EXAM: CT ABDOMEN AND PELVIS WITHOUT AND WITH CONTRAST 01/02 - [facility] de Consult Consult CT /2015 - Medical CT This report was dictated by a [employer]/Fellow. I have personally reviewed the images as [...] PELVIS WITHOUT AND WITH CONTRAST 01/02 - [facility] Consult Consult CT /2015 - Medical CT This report was dictated by a [employer]/Fellow. I have personally reviewed the images as [...] Date Comments Source Heart Rate 71 01/04/2016 [facility] Temperature Oral (F) 97.3 F 01/04/2016 [facility] Systolic (mm Hg) 107 01/04/2016 [facility] Diastolic (mm Hg) 66 01/04/2016 [facility] Respitory Rate 18 01/04/2016 [facility] Temperature Oral (F) 98.1 F 01/04/2016 [facility] Systolic (mm Hg) 115 01/04/2016 [facility] Diastolic (mm Hg) 71 01/04/2016 [facility] Respitory Rate 16 01/04/2016 [facility] Heart Rate 69 01/04/2016 [facility] Heart Rate 70 01/04/2016 [facility] Temperature Oral (F) 97.0 F 01/04/2016 [facility] Respitory Rate 17 01/04/2016 [facility] Systolic (mm Hg) 112 01/04/2016 [facility] Diastolic (mm Hg) 63 01/04/2016 [facility] BMI Calculated 43 01/03/2016 [facility] Weight 113.636 01/03/2016 [facility] Height 162.56 cm 01/03/2016 [facility] Weight 100 01/03/2016 [facility] BMI Calculated 34.53 01/03/2016 [facility] Height 170.18 cm 01/03/2016 [facility] Encounters Location Location Encounter Encounter Reason Attending ADM DC Status Source Details Type Number For Provider Date Date Visit [facility] OBS [id number] Ke 01/02 01/03 [facility] [place] /2015 [facility] Patient Center Procedures Procedure Code Date Perfomer Comments Source Ablation<sup>1</ [id number] UTERUS ABLATION [facility] sup> TO CONTROL Medical BLEEDING 3 Center YEARS AGE IN [place]
[2018-10-06] MEDS ORDERED: Ringers Lactate 1,000 ML IV ONE (07:38)
[2018-10-06] MEDS ORDERED: CEFAZOLIN/SWI 1gm 1 GM/10 ML SYR ONE (07:38)
[2018-10-06] MEDS ORDERED: BUPIVACAINE 0.5% PF 10 ML VIAL ONE (10:13)
[2018-10-06] MEDS ORDERED: METHYLENE BLUE 0.5% 10 ML AMP ONE (10:13)
[2018-10-06] MEDS ORDERED: PROPOFOL 200 MG/20 ML VIAL IV ONE ×2 (10:24→10:48)
[2018-10-06] MEDS ORDERED: MIDAZOLAM HCL 2 MG/2 ML INJ ONE (10:24)
[2018-10-06] MEDS ORDERED: FENTANYL CITR 100 MCG/2 ML ONE ×2 (10:24→12:16)
[2018-10-06] MEDS ORDERED: LIDOCAINE 1% MPF 5 ML VIAL ONE (10:24)
[2018-10-06] MEDS ORDERED: ROCURONIUM 50 MG/5 ML VIAL IV ONE (10:24)
[2018-10-06] MEDS ORDERED: SUCCINYLCHOLINE 20 MG/ML (10 ML) IV ONE (10:32)
[2018-10-06] MEDS ORDERED: ALBUTEROL 2.5 MG/3 ML NEB SOL ONE (11:11)
[2018-10-06] MEDS ORDERED: ALBUTEROL INHALER 60 PUFF/8 GM IH ONE (11:13)
[2018-10-06] MEDS ORDERED: KETOROLAC 30 MG/ML INJ ONE (12:13)
[2018-10-06] MEDS ORDERED: ONDANSETRON 4 MG/2 ML VIAL ONE (12:14)
[2018-10-06] MEDS ORDERED: DEXAMETHASONE 4 MG/ML VIAL ONE (12:16)
[2018-10-06] MEDS: HYDROMORPHONE HCL 1 MG/ML INJ ONE ×2 (12:43→12:47)
[2018-10-06] MEDS ORDERED: HYDROMORPHONE HCL 1 MG/ML INJ ONE (13:06)
[2018-10-06] MEDS ORDERED: TRAMADOL 37.5mg/APAP 325mg PER TAB ONE (13:41)
--- NOTE | 2018-10-06 22:24 | OP ---
Date of Procedure: 10/06/2018 Surgeon: Ramakrishna South MD Financial Advisor: VARINDER Myers. Preoperative Diagnosis: Right breast cancer. Postoperative Diagnosis: Right breast cancer. Procedure: Right breast mastectomy and sentinel node biopsy. Estimated Blood Loss: Minimal. Specimen: Right breast margins free. Coral node negative for metastatic disease. Findings: As above. Anesthesia: General. Complications: None. Drains: LYNDON #10 flat. Disposition: The patient tolerated the procedure in stable condition and was taken to Recovery in go od general condition. Procedure In Detail: The patient was brought to the OR and placed in supine position and general ane sthesia begun. The patient was prepped and draped in the usual sterile fashion after methylene blue was injected in the periareolar skin region under sterile condition and then the counter was used to identify the sen tinel node. All counts were recorded in the medical record and then a 3 cm incision was made in the right axilla, subcu tissue divided and deep to the subcutaneous tissue, large blue lymph node identif ied, two of them next to each other and then they were both excised and vascular manish were used to take control of the pedicles and then the frozen section revealed no evidence of metastatic disease. The same incision was extended into an ellipse of skin incision approximately 28 x 10 cm. Subcutan eous tissue was divided and flaps created superior to the clavicle, medially to the sternal border an d inferior to the insertion of the rectus abdominis muscles, laterally to the latissimus dorsi and th en all breast tissue over the pectoralis fascia was removed, margins were checked and grossly they we re negative. Subsequently, the entire wound was irrigated, bleeding was controlled with cautery and then a #10 flat LYNDON drain placed, secured with the 3-0 nylon, then 2-0 chromic and 3-0 chromic used to reapproximate the subcutaneous tissue and close the skin. Sterile dressing was applied. The patien t was awakened and taken to Recovery in good general condition. Discharge Note: The patient will go to Day Surgery and home when stable. Disposition: Home. Condition: Stable. Discharge Instructions: Resume home medications and diet. Activity as tolerated. No heavy lifting. Keep dressing clean and dry. Sponge bathe. Ultracet 1 tablet p.o. q.4 p.r.n. pain, Keflex 5 mg p. o. q.6h. Followup in my office in 1 week. Call for appointment. Record LYNDON output q.12, bring recor ds to office. Teach the patient and family. CHEPE/JASON Voice ID: [id number] Report ID: [id number]
== END 2018-10-06 14:50 | disposition home or self-care (01) ==
LOC: OR 07:10
PROVIDERS: ATTEND Surgery
PROC: 07B50ZX Excision of Right Axillary Lymphatic, Open Approach, Diagnostic (ICD-10-PCS; 2018-10-06)
PROC: 0HTT0ZZ Resection of Right Breast, Open Approach (ICD-10-PCS; principal; 2018-10-06 10:00)
DX: C50.911 Malignant neoplasm of unspecified site of right female breast (principal); C77.3 Secondary and unspecified malignant neoplasm of axilla and upper limb lymph nodes; Z17.0 Estrogen receptor positive status [ER+]; I10 Essential (primary) hypertension; K21.9 Gastro-esophageal reflux disease without esophagitis; F41.9 Anxiety disorder, unspecified; Z88.6 Allergy status to analgesic agent; Z80.1 Family history of malignant neoplasm of trachea, bronchus and lung; Z80.8 Family history of malignant neoplasm of other organs or systems
CPT/HCPCS: 36415; 71046; 80048; 85025; 88307; 88309; 88333; 93005; J0330; J0690; J1170; J2250; J2405; J2704; J3010